=== PATIENT | female | born 1955 | race Asian ===

== ENCOUNTER 2019-02-06 16:15 | Inpatient (IN) | payer BC ==
[2019-02-06] VITALS (11 sets, daily range): BP systolic 82–104; BP diastolic 52–61
[~2019-02-06] VITALS: Ht 152.4 cm; Wt 51.3 kg
--- NOTE | 2019-02-06 16:18 | NUR ---
PT. BIBA TAKEN TO BED 10
--- NOTE | 2019-02-06 16:27 | NUR ---
PT BIBA C/O LOWER ABD PAIN X2 DAYS. PT REPORTS / "EXPLODING" THROBING CONSTANT PAIN THAT RADIATES TO LOWER BACK. PER SON PT HAS SMALL BM TODAY, LAST REGULAR BM WAS I WEEK AGO. PT STARTED CHEMO THERAPY SATURDAY AT [facility] FOR STAGE 4 LUNG CANCER. PT HYPOTENSIVE WITH BP OF 82/52, PT PALE, ER NOTIFIED. MEDHX:GERD, HYPOTHYROIDISM, STAGE 4 LUNG CANCER RX:SEE MED REC
[2019-02-06] MEDS ORDERED: NACL 0.9% 500 ML IV ONE (16:30)
--- NOTE | 2019-02-06 16:40 | NUR ---
PT IV LEAKING FROM IV SITE, IV STOPED, NO SIGNS OF INFILTRATION, NEW IV INSERTED ON LT AC, PT TOLERATED WELL.
--- NOTE | 2019-02-06 17:10 | NUR ---
PT ON BED AMADOR AT THIS TIME, BUT IS UNABLE TO URINATE. PT STATES THAT SHE WOULD LIKE TO TRY FOR 30 MORE MINUTES BEFORE ATTEMPTING STRAIGHT CATH
[2019-02-06] MEDS ORDERED: MORPHINE SULFATE 2 MG/ML SYR IVP ONE ×2 (17:15→18:00)
--- NOTE | 2019-02-06 17:21 | NUR ---
PT REFUSED CT AND STRAIGHT CATH STATING ITS TOO PAINFUL AND "I WANT TO "
[2019-02-06] MEDS ORDERED: OXYC40TE66 PO (17:40)
[2019-02-06] MEDS ORDERED: PANT40EC PO (17:40)
[2019-02-06] MEDS ORDERED: ONDA8TAB PO (17:40)
[2019-02-06] MEDS ORDERED: COM5 PO (17:40)
[2019-02-06] MEDS ORDERED: FOLIC ACID PO (17:40)
[2019-02-06] MEDS ORDERED: LEVO0.155 PO (17:40)
[2019-02-06] MEDS ORDERED: DEC4 PO (17:40)
[2019-02-06] MEDS ORDERED: HYDR-5092 PO (17:40)
[2019-02-06] MEDS ORDERED: [UNRECOGNIZED DRUG - REMARK] PO (17:40)
--- NOTE | 2019-02-06 17:40 | NUR ---
LAB CALLED, STATES PT WILL NEED TO BE REDRAWN FOR CBC, DR TENA MADE AWARE, PT REFUSING ALL INTERVENTIONS AT THIS TIME, WILL FOLLOW UP.
[2019-02-06] MEDS ORDERED: NACL 0.9% 1,000 ML IV ONE (17:55)
[2019-02-06] MEDS ORDERED: LEVOFLOXACIN 500 MG/D5W PREMIX 100 ML IV ONE (18:00)
[2019-02-06] MEDS ORDERED: DOPamine 400 MG/D5W PREMIX 250 ML IV ONE (18:00)
[2019-02-06] MEDS ORDERED: metroNIDAZOLE 500 MG/NS PREMIX 100 ML IV ONE (18:00)
[2019-02-06] MEDS ORDERED: HYDROcodone/APAP 7.5/325 MG 1 TAB PO PRN (18:10)
[2019-02-06] MEDS ORDERED: FAMOTIDINE 20 MG/2 ML VIAL IV PRN (18:10)
[2019-02-06] MEDS ORDERED: LORazepam 2 MG/ML VIAL IM/IVP PRN (18:10)
[2019-02-06] MEDS ORDERED: NACL 0.9% 1,000 ML IV SCH (18:10)
[2019-02-06] MEDS ORDERED: DOCUSATE SODIUM 100 MG GELCAP PO PRN (18:10)
[2019-02-06] MEDS ORDERED: ONDANSETRON 4 MG/2 ML VIAL IM/IVP PRN (18:10)
[2019-02-06] MEDS ORDERED: ACETAMINOPHEN 325 MG TAB PO PRN (18:10)
--- NOTE | 2019-02-06 18:13 | NUR ---
STARTED PT ON DOBUTAMINE DRIP 5MCG/KG, PT TOLERATING WELL
[2019-02-06 18:21] LABS: APPEARANCE,URINE HAZY (CLEAR); BILIRUBIN,URINE NEGATIVE (NEGATIVE); BLOOD, URINE NEGATIVE (NEGATIVE); COLOR,URINE YELLOW (YELLOW); LEUKOCYTE ESTERASE ,URINE TRACE (NEGATIVE); NITRITE, URINE NEGATIVE (NEGATIVE); PH,URINE 7.5 (5.0-9.0); UGLUCOSE NEGATIVE (NEGATIVE)
--- NOTE | 2019-02-06 18:23 | NUR ---
BP 110/62, WILL KEEP PT AT 5MCG/KG OF DOBUTAMINE AT THIS TIME, ER INFORMED.
[2019-02-06 18:36] LABS: ANION GAP 12.6 (8-16); CARBON DIOXIDE 26.4 mmol/L (21-32)
[2019-02-06 18:37] LABS: CREATININE 0.5 mg/dL (0.6-1.3); TOTAL BILIRUBIN 1.1 mg/dL (0.0-1.0)
--- NOTE | 2019-02-06 18:41 | NUR ---
CLEAR LUNGS IN RUL AND EMORY; DIMINISHED IN RIGHT LOWER LOBE; HR 91; SPO2: 98; RR: 19 PAIN AT A 10/10 BLOOD PRESSURE AT 112/60 PATIENT POSITIONED FOR COMFORT; HOB ELEVATED; BEDRAILS UP X1.
[2019-02-06] MEDS ORDERED: DOPamine 400 MG/D5W PREMIX 250 ML IV SCH (18:45)
[2019-02-06] MEDS ORDERED: HYDROmorphone PFS 2 MG/ML SYR IVP ONE (18:50)
[2019-02-06 19:05] LABS: BARBITURATE, URINE NEG. ng/ml (NEG <=200); BENZODIAZEPINE, URINE NEG. ng/mL (NEG <=200); CANNABINOID, URINE POS. ng/mL (NEG <=50); COCAINE, URINE NEG. ng/mL (NEG <=300); OPIATE, URINE POS. ng/mL (NEG <=2000); PHENCYCLIDINE SCREEN,URINE NEG. ng/mL (NEG <=25)
[2019-02-06 19:19] LABS: ALBUMIN 2.1 g/dL (3.4-5.0); CHOL/HDL RATIO 2.8 (1-4.5); FREE T4 (FREE THYROXINE) 1.77 ng/dL (0.76-1.46); MAGNESIUM 2.1 mg/dL (1.8-2.4); PHOSPHORUS 3.5 mg/dL (2.5-4.9); THYROID STIMULATING HORMONE 0.16 uIU/mL (0.34-3.74)
[2019-02-06 19:23] LABS: RBC,URINE 0 /HPF (0-5)
[2019-02-06 19:24] LABS: YEAST,URINE Few /HPF (None Seen)
--- NOTE | 2019-02-06 19:30 | NUR ---
BEDSIDE REPORT RECIEVED FROM RILEY CHOE. ASSUMED CARE AT THIS TIME.
[2019-02-06] MEDS ORDERED: ALBUTEROL SULFATE/IPRATROPIU 3 ML SOL IH PRN (20:00)
--- NOTE | 2019-02-06 20:00 | NUR ---
RECEIVED BEDSIDE REPORT FROM OPERATION SHIFT SUPERVISOR LOVE, PATIENT AAOX4 ABLE TO FOLLOW COMMANDS AND MAKE NEEDS KNOWN. ON DOPAMINE DRIP INFUSING AT 5 MCG INTO LEFT AC 20 G IV. RIGHT FA IV 20 G SL DRESSING INTACT. V/S STABLE TEMP 97.8 F. PERRLA SIZE 3 BILATERALLY. LLL DIMINISHED S1 AND S2 HEARD CAP REFILL LESS THAN 2 SECONDS UPPER EXTREMITY AND LOWER EXTREMITY PULSES PALPATED. SKIN INTACT. ABDOMEN SOFT AND NON-DISTENDED. PATIENT C/O SEVERE IN THE ABDOMEN 04/09. WANTS PAIN MEDICATION. DELVALLE CATH IN PLACE DRAINING DARK YELLOW URINE. DAUGHTER AND SON AT BEDSIDE. ADMISSION QUESTIONS ASKED. MRSA SCREEN COLLECTED AND SENT TO LAB. BED IN LOWEST POSITION. CALL LIGHT WITHIN REACH. WILL CONTINUE TO FREQUENTLY MONITOR.
--- NOTE | 2019-02-06 20:35 | NUR ---
Patient will be admitted to care of Dr. Patino. Admited to ICU . Will go to room 1. Belongings list completed. VSS at time of transport. Report to RILEY Whitlock. Transfer of care at this time.
[2019-02-06] MEDS ORDERED: PANTOPRAZOLE 40 MG INJ VIAL IVP SCH (21:00)
[2019-02-06] MEDS: DEXAMETHASONE 4 MG TAB PO SCH (21:00)
[2019-02-06] MEDS ORDERED: ONDANSETRON 4 MG/2 ML VIAL IVP PRN (21:00)
[2019-02-06] MEDS ORDERED: LACTOBACILLUS RHAMNOSUS GG 1 EACH CAP PO SCH (21:00)
[2019-02-06] MEDS ORDERED: PROCHLORPERAZINE 10 MG/2 ML VIAL IVP PRN (21:00)
[2019-02-06] MEDS ORDERED: LORazepam 2 MG/ML VIAL IVP SCH (22:00)
[2019-02-06] MEDS: HYDROmorphone PFS 2 MG/ML SYR IVP PRN (22:25)
--- NOTE | 2019-02-06 22:33 | NUR ---
RECEIVED A CALL FROM THE PHARMACY AND SPOKE WITH JOEL. RECEIVED RECOMMENDATION REGARDING THE PAIN MEDICATIONS. WILL INFORM THE RESIDENT DOCTOR.
--- NOTE | 2019-02-06 22:36 | NUR ---
CALLED RESIDENT DOCTORS, SPOKE WITH DR. FONTANEZ. INFORMED HIM REGARDING THE PHARMACIST'S, JOEL, RECOMMENDATION REGARDING THE PAIN MEDICATIONS.
[2019-02-06] MEDS ORDERED: DEXAMETHASONE 4 MG TAB ONE (23:00)
--- NOTE | 2019-02-06 23:13 | NUR ---
PATIENT VOMITING GREEN EMESIS WILL GIVE ZOFRAN
--- NOTE | 2019-02-06 23:37 | NUR ---
PT TAKEN TO RADIOLOGY DEPARTMENT FOR CT SCAN.
[2019-02-07] VITALS (75 sets, daily range): BP systolic 75–115; BP diastolic 40–81
--- NOTE | 2019-02-07 00:01 | NUR ---
PT RETURNED FROM RADIOLOGY DEPARTMENT ACCOMPANIED BY RN AND BELT BRANDER
[2019-02-07 01:10] LABS: HEMATOCRIT 28.4 % (36-48); HEMOGLOBIN 9.2 g/dL (12.0-16.0); MEAN CORPUSCULAR HEMOGLOBIN 30 pg (27-31); MEAN CORPUSCULAR HGB CONC 33 g/dL (33-37); MEAN CORPUSCULAR VOLUME 92.7 fL (80-94); PLATELET COUNT (AUTO) 370 K/uL (140-450); RED BLOOD CELL COUNT(AUTO) 3.06 MIL/uL (4.20-5.40); RED CELL DISTRIBUTION WIDTH 18.8 % (11.6-13.7); WHITE BLOOD COUNT (AUTO) 16.7 K/uL (4.8-10.8)
[2019-02-07 01:15] LABS: LYMPHOCYTES % (MANUAL) 2 % (20-46); MONOCYTES % (MANUAL) 0 % (5-12)
[2019-02-07] MEDS: HYDROmorphone PFS 2 MG/ML SYR IVP PRN ×6 (01:52→23:31)
[2019-02-07] MEDS: DEXT 5% /NACL 0.9% 1,000 ML IV SCH ×4 (01:52→23:43)
--- NOTE | 2019-02-07 02:02 | NUR ---
CALLED [facility], SPOKE WITH ADRI, INFORMATIONS GIVEN REGARDING PATIENT FOR TRANSFER FOR HIGHER LEVEL OF CARE. DR. FONTANEZ (RESIDENT) SPOKE WITH ADRI FOR ADDITIONAL INFORMATION GIVEN. PER ADRI'S INSTRUCTIONS TO FAX FACE SHEET AND CT ABDOMEN RESULT TO [phone].
--- NOTE | 2019-02-07 02:05 | NUR ---
CALLED [facility], PILOT SUBMERSIBLERICHA MADE AWARE TRANSFER TO TERTIARY CARE WITH SURGICAL CONSULT. PILOT SUBMERSIBLE INFORMED ME PROCESS CONTROL PROGRAMMER TO HANDLE IN AM. INFORMED THAT TRANSFERS ARE HANDLED AFTER 0800. OFFERED TO FAX INFO REGARDING PT AND STATED PT WAS FOLLOWED @ [facility]. PILOT SUBMERSIBLE DECLINED AND STATED DID NOT WANT INFO FAXED @ THIS TIME.
--- NOTE | 2019-02-07 02:10 | NUR ---
CALLED [facility], DRY ROOM ATTENDANT MUKUND MADE AWARE OF TRANSFER. PT INFO FAXED TO [phone]. NO BED @ THIS TIME.
--- NOTE | 2019-02-07 02:20 | NUR ---
PLACED A CALL TO [facility], SPOKE WITH RADHA, PATIENT'S INFORMATIONS GIVEN, FAXED ALL PAERWORKS TO [phone].
--- NOTE | 2019-02-07 02:21 | NUR ---
[facility] CALLED BACK. NO BED AVAILABLE
--- NOTE | 2019-02-07 02:40 | NUR ---
[facility] EFRA RUIZ, TRANSFER PACKET FAXED TO [place] [facility] FAX. WILL FILL OUT FORMS AND RETURN FA[place] TO [facility].
--- NOTE | 2019-02-07 02:45 | NUR ---
ATIVAN TAKEN OUT BUT NOT USED DURING PROCEDURE WASTED WITH CHARGE NURSE MARTIN
--- NOTE | 2019-02-07 02:45 | NUR ---
RIGHT NECK CENTRAL LINE INSERTED WILL CALL FOR X-RAY
[2019-02-07] MEDS ORDERED: NOREPINEPHRINE 8 MG in DEXTROSE 5% 250 ML IV PRN (02:50)
[2019-02-07] MEDS ORDERED: PANTOPRAZOLE 40 MG INJ VIAL IVP SCH (03:05)
--- NOTE | 2019-02-07 03:20 | NUR ---
[facility] CALLED BACK, NO BED AVAILABLE @ THIS TIME
[2019-02-07] MEDS ORDERED: NOREPINEPHRINE 4 MG/4 ML VIAL IV ONE (03:23)
--- NOTE | 2019-02-07 03:35 | NUR ---
[facility] CALLED BACK NO BED AVAILABLE.
[2019-02-07] MEDS: oxyCODONE 40 MG TABER PO PRN ×3 (03:53→19:33)
--- NOTE | 2019-02-07 04:00 | NUR ---
PATIENT C/O PAIN WILL MEDICATE
[2019-02-07 04:18] LABS: HEMATOCRIT 29.4 % (36-48); HEMOGLOBIN 9.4 g/dL (12.0-16.0); MEAN CORPUSCULAR HEMOGLOBIN 30 pg (27-31); MEAN CORPUSCULAR HGB CONC 32 g/dL (33-37); MEAN CORPUSCULAR VOLUME 92.6 fL (80-94); PLATELET COUNT (AUTO) 393 K/uL (140-450); RED BLOOD CELL COUNT(AUTO) 3.17 MIL/uL (4.20-5.40); RED CELL DISTRIBUTION WIDTH 18.3 % (11.6-13.7); WHITE BLOOD COUNT (AUTO) 17.9 K/uL (4.8-10.8)
[2019-02-07 04:45] LABS: EOSINOPHILS % (MANUAL) 1 % (0-4); LYMPHOCYTES % (MANUAL) 4 % (20-46); MONOCYTES % (MANUAL) 1 % (5-12)
[2019-02-07 04:52] LABS: ANION GAP 13.6 (8-16); CARBON DIOXIDE 23.6 mmol/L (21-32); CREATININE 0.7 mg/dL (0.6-1.3); POTASSIUM 4.2 mmol/L (3.5-5.1)
[2019-02-07] MEDS ORDERED: metroNIDAZOLE 500 MG/NS PREMIX 100 ML IV SCH (05:00)
--- NOTE | 2019-02-07 05:00 | NUR ---
REPOSITIONED PATIENT FOR COMFORT. FAMILY AT BEDSIDE, CALL LIGHT WITHIN REACH
[2019-02-07 05:43] LABS: PHOSPHORUS 3.8 mg/dL (2.5-4.9)
[2019-02-07] MEDS ORDERED: ALBUTEROL SULFATE/IPRATROPIU 3 ML SOL IH SCH (06:00)
[2019-02-07] MEDS ORDERED: LEVOTHYROXINE 0.075 MG TAB PO SCH (07:00)
--- NOTE | 2019-02-07 07:30 | NUR ---
RECEIVED BEDSIDE REPORT FROM PM RN. PATIENT AWAKE, ALERT. ABLE TO FOLLOW COMMANDS AND MAKE NEEDS KNOWN. ON O2 NC 2L/MIN. NO S/S OF RESPIRATORY DISTRESS NOTED. BEDSIDE MONITOR SHOWS ST 120S-130S.S1 AND S2 HEARD CAP REFILL LESS THAN 3 SECONDS UPPER EXTREMITY AND LOWER EXTREMITY PULSES PALPATED. PT HAS D5 1/2 NS RUNNING AT 100 CC/HR INTO LEFT AC 20 G IV. RIGHT FA IV 20 G SL DRESSING INTACT. PT ALSO ON VASOPRESSOR LEVOPHED AT 45 MCG/MIN TO RIJ TLC .SKIN INTACT. ABDOMEN SOFT AND NON-DISTENDED. DELVALLE CATH IN PLACE DRAINING DARK YELLOW URINE. INTRODUCED MYSELF AND POC EXPLAINED , PT VERBALIZED UNDERSTANDING. BED IN LOWEST POSITION. CALL LIGHT WITHIN REACH. WILL CONTINUE TO FREQUENTLY MONITOR. Addendum: 02/07/19 at 1337 by Amrita Canada RN TYPO: LEVOPHED WAS ON 24 MCG/MIN NAD O2 WAS 10 L/MIN.
--- NOTE | 2019-02-07 07:36 | NUR ---
PT UNWILLING TO DO IS
[2019-02-07] MEDS ORDERED: HYDROmorphone PFS 2 MG/ML SYR IVP PRN (07:45)
--- NOTE | 2019-02-07 08:38 | NUR ---
DR. CARVAJAL HAD FAMILY MEETING WITH PT'S SON AND DAUGHTER REGARDING FUTURE CARE. DR. CARVAJAL UPDATED PT'S CONDITION AND TEST REPORT. FAMILY GET AGREEMENT ON PAIN CONTROL AND VASOPRESSOR ONLY. NO TRANSFER TO HIGHER LEVEL OF CARE.
[2019-02-07] MEDS: DEXAMETHASONE 4 MG TAB PO SCH (09:00)
[2019-02-07] MEDS ORDERED: FOLIC ACID 1 MG TAB PO SCH (09:00)
--- NOTE | 2019-02-07 09:00 | NUR ---
PT REFUSED DECADRON MEDICATION.
[2019-02-07] MEDS: NOREPINEPHRINE 8 MG in DEXTROSE 5% 250 ML IV PRN ×3 (10:16→22:33)
--- NOTE | 2019-02-07 12:07 | NUR ---
PT SLEEPING AT THIS MOMENT. NO S/S OF RESPIRATORY DISTRESS OR DISCOMFORT NOTED.
--- NOTE | 2019-02-07 13:38 | NUR ---
DR. VEGA IN TO CHECK PT, PER DR. VEGA, KEEP MAP 65, WILL CARRY OUT.
--- NOTE | 2019-02-07 16:22 | NUR ---
PT SLEEPING, NO S/S OF RESPIRATORY DISTRESS OR DISCOMFORT NOTED. FRIEND AT BEDSIDE.
--- NOTE | 2019-02-07 19:10 | NUR ---
RECEIVED BEDSIDE REPORT FROM DAY SHIFT RN. PATIENT AWAKE, ALERT X 3 TO PERSON, PLACE, AND SELF, PUPILS EQUAL, ROUND AND ACCOMMODATE BILATERALLY SIZE 3. ABLE TO FOLLOW COMMANDS AND MAKE NEEDS KNOWN. ON 2L/MIN VIA NC. LUNG SOUNDS DIMINISHED ON LEFT LOWER LOBE. BEDSIDE MONITOR SHOWS ST 120'S-130'S. S1 AND S2 HEARD CAP REFILL LESS THAN 2 SECONDS UPPER EXTREMITY AND LOWER EXTREMITY PULSES PALPATED. PT ON LEVOPHED DRIP, 24 MCG INFUSING AT 45 ML/HR AND D5W/1/2 NS RUNNING AT 100 ML/HR INTO RIGHT TRIPLE LUMEN IJ, DRESSING INTACT. 20 G IV IN LEFT AC, SL, DRESSING INTACT. RIGHT FA IV 20 G SL DRESSING INTACT. ABDOMEN SOFT AND NON-DISTENDED. PATIENT C/O SEVERE ABDOMINAL PAIN ASKED FOR OXYCONTIN. ICE CHIPS OFFEND PATIENT WAS WEAK TO OPEN MOUTH. DELVALLE CATH IN PLACE DRAINING YELLOW URINE. POC EXPLAINED , PT VERBALIZED UNDERSTANDING. BED IN LOWEST POSITION. CALL LIGHT WITHIN REACH. WILL CONTINUE TO FREQUENTLY MONITOR.
--- NOTE | 2019-02-07 19:35 | NUR ---
BP 76/51 HR 130 O2SAT 93% ON 2 L NC. TITRATED LEVOPHED TO 26 MCG INFUSING AT 48.25 ML/HR.
[2019-02-07] MEDS: HYDROcodone/APAP 10/325 MG 1 TAB TAB PO SCH (22:07)
--- NOTE | 2019-02-07 23:59 | NUR ---
CALLED DR LAFLEUR TO NOTIFY LEVOPHED IS AT 30 MCG AND MAXED OUT CURRENT BP 80/43 MAP 57 HR 126 O2SAT 94% AND TO NOTIFY URINE OUTPUT IS 100 ML FOR THE LAST [address] LAFLEUR STATED THAT THERE WAS A FAMILY MEETING WITH THE PATIENT AND THE PATIENT WISHES TO NOT BE RESUSCITATED BUT FAMILY WISHES THAT PATIENT BE ON LEVOPHED UNTIL MORE FAMILY CAN COME VISIT HER THEREFORE WE WILL NOT START ANOTHER VASOPRESSOR AND CONTINUE COMFORT CARE NEEDED.
[2019-02-08] VITALS (57 sets, daily range): BP systolic 42–151; BP diastolic 12–106
[2019-02-08] MEDS: HYDROmorphone PFS 2 MG/ML SYR IVP PRN ×2 (01:29→07:19)
--- NOTE | 2019-02-08 01:52 | NUR ---
PATIENT SLEEPING IN BED FLACC-0 AFTER PRN DILAUDID GIVEN
[2019-02-08] MEDS: HYDROcodone/APAP 10/325 MG 1 TAB TAB PO SCH ×2 (02:54→06:41)
[2019-02-08] MEDS: NOREPINEPHRINE 8 MG in DEXTROSE 5% 250 ML IV PRN (03:20)
--- NOTE | 2019-02-08 04:00 | NUR ---
PATIENT REPOSITIONED FOR COMFORT, HAD 1 BM, CALL LIGHT WITHIN REACH. FAMILY AT BEDSIDE
--- NOTE | 2019-02-08 06:29 | NUR ---
ASKED PATIENT IF WANTED DUE CYRUS PATIENT STATED NO SHE IS OKAY AT THIS TIME. FAMILY AT BEDSIDE.
--- NOTE | 2019-02-08 06:43 | NUR ---
PATIENT HAS BEEN SCREENED AND CATEGORIZED HIGH NUTRITION RISK. PATIENT WILL BE SEEN WITHIN 1-2 DAYS OF ADMISSION. 02/07/19-02/08/19 Josefina Scales MS, RDN
[2019-02-08] MEDS ORDERED: SCOPOLAMINE 1.5 MG/72 HR PATCH TD PRN (06:55)
[2019-02-08] MEDS ORDERED: MORPHINE SULFATE 50 MG in NACL 0.9% 45 ML IV PRN (06:55)
--- NOTE | 2019-02-08 07:15 | NUR ---
RECEIVED BEDSIDE REPORT FROM LANDSCAPE GARDENER RN, JOSE. PATIENT AAOX3. ABLE TO FOLLOW COMMANDS AND MAKE NEEDS KNOWN. PERRLA, ON O2 2L VIA NC. LUNG SOUNDS DIMINISHED. ST ON MONITOR. BP AND O2 ARE STABLE AT THIS TIME. RIGHT IJ NOTED, INFUSING LEVOPHED DRIP, 30 MCG/MIN WHICH IS 56.25ML/HR. D5W/1/2 NS RUNNING AT 100 ML/HR. CVC DRESSING INTACT. IV TO LEFT AC 20G AND RIGHT FA 20, SL, PATENT AND INTACT. DELVALLE CATH IN PLACE DRAINING YELLOW URINE. POC EXPLAINED , PT VERBALIZED UNDERSTANDING. BED IN LOWEST POSITION. CALL LIGHT WITHIN REACH. WILL CONTINUE TO MONITOR.
--- NOTE | 2019-02-08 07:19 | NUR ---
ENDORSED PATIENT TO DAY SHIFT NURSE LIZY FAMILY AT BEDSIDE, STILL ON LEVOPHED DRIP.
[2019-02-08] MEDS ORDERED: HYDROmorphone PFS 2 MG/ML SYR ONE (07:28)
--- NOTE | 2019-02-08 07:30 | NUR ---
DR CARVAJAL SEEN PT. ORDERED MORPHINE DRIP AND DC LEVOPHED BY TITRATING IT DOWN ONCE MORPHINE DRIP STARTS.
--- NOTE | 2019-02-08 08:45 | NUR ---
PT HAD BM, LARGE AMOUNT FORMED STOOL. BED AMADOR PROVIDED. PT WAS CLEANED AND REPOSITIONED.
[2019-02-08] MEDS ORDERED: NOREPINEPHRINE 4 MG in DEXTROSE 5% 250 ML IV PRN (09:10)
--- NOTE | 2019-02-08 10:00 | NUR ---
SEVEN FAMILY MEMBERS IN ROOM WITH THE PT. FAMILY TALKING TO THE PT AND COMFORTING HER.
--- NOTE | 2019-02-08 10:35 | NUR ---
02/08/19 RD INITIAL ASSESSMENT COMPLETED PLEASE REFER TO NUTRITION ASSESSMENT UNDER CARE ACTIVITY FOR ESTIMATED NUTRITIONAL NEEDS. RD RECOMMENDATIONS: 1. CONTINUE ON FULL LIQUID DIET TOLERATED. 2. IF/WHEN MEDICALLY APPROPRIATE AND PT ABLE TO TOLERATE, ADVANCE DIET TO REGULAR. 3. CONSULT RDN PRN. 4. RD WILL F/U 2-3 DAYS; HIGH RISK. MILANA MONTES, MS, RDN
[2019-02-08] MEDS ORDERED: diphenhydrAMINE 50 MG/ML VIAL IVP SCH (11:55)
--- NOTE | 2019-02-08 14:15 | NUR ---
CALLED DR CARVAJAL TIME 1413, MADE HER AWARE PT'S HEART RATE IS DROPPING TO 30S. DR CARVAJAL CAME AND PRONOUNCED AT 1415.
--- NOTE | 2019-02-08 14:25 | NUR ---
[facility] CALLED, PT IS NOT A GOOD CANDIDATE.
--- NOTE | 2019-02-08 14:50 | NUR ---
DETECTIVE SUPERVISOR MS WAGNER CALLED BACK AND RELEASED BODY.
--- NOTE | 2019-02-08 15:30 | NUR ---
DELVALLE DC'S. CENTRAL LINE CATH REMOVED, NO BLEEDING NOTED. DRESSING APPLIED. PERIPHERAL IVS ON LEFT AC AND RIGHT ARM WERE ALSO REMOVED. DRESSING APPLIED. HANDED PT'S BELONGING (TAG ON) TO PT'S DAUGHTER OCTAVIO, AND MADE HER AWARE PT STILL HAS HER ERNA BRACELET ON HER RIGHT HAND. CLEANED PT'S BODY AND PLACE BODY IN THE WHIT BODY BAG. TOE TAG AND BAG TAG ATTACHED.
--- NOTE | 2019-02-08 17:30 | NUR ---
BODY PICKED UP BY [employer]. PT'S DAUGHTER OCTAVIO AND SON RUCHI WERE PRESENT, LEFT WITH ALL PT'S BELONGINGS.
== END 2019-02-08 14:15 | disposition expired | DRG 871 ==
LOC: MED 16:15 → MIC 18:10
PROVIDERS: ADMIT General Practice; ATTEND General Practice
PROC: 02HV33Z Insertion of Infusion Device into Superior Vena Cava, Percutaneous Approach (ICD-10-PCS; principal; 2019-02-07)
PROC: B548ZZA Ultrasonography of Superior Vena Cava, Guidance (ICD-10-PCS; 2019-02-07)
DX: A41.9 Sepsis, unspecified organism (principal); E43 Unspecified severe protein-calorie malnutrition; N17.0 Acute kidney failure with tubular necrosis; R65.21 Severe sepsis with septic shock; N39.0 Urinary tract infection, site not specified; C34.90 Malignant neoplasm of unspecified part of unspecified bronchus or lung; C79.31 Secondary malignant neoplasm of brain; C78.5 Secondary malignant neoplasm of large intestine and rectum; D68.9 Coagulation defect, unspecified; L02.211 Cutaneous abscess of abdominal wall; K21.9 Gastro-esophageal reflux disease without esophagitis; E03.9 Hypothyroidism, unspecified; F17.210 Nicotine dependence, cigarettes, uncomplicated; I46.9 Cardiac arrest, cause unspecified; D64.9 Anemia, unspecified; Z85.118 Personal history of other malignant neoplasm of bronchus and lung; Z90.49 Acquired absence of other specified parts of digestive tract; Z68.22 Body mass index [BMI] 22.0-22.9, adult
CPT/HCPCS: 36415; 71045; 71270; 80048; 80053; 80305; 81001; 82040; 82140; 82150; 82550; 83036; 83605; 83690; 83735; 83880; 84100; 84439; 84443; 84484; 85025; 85610; 85730; 87040; 87081; 87086; 93005; 96365; 96367; 96368; 96375; 96376; 99285; C1758; C9113; J1170; J1200; J1265; J1642; J1956; J2060; J2270; J2405; J3490; J7030; J7042; J7060; Q0092; Q9967